=== PATIENT | female | born 1990 | race Caucasian/White ===

== ENCOUNTER 2017-06-19 23:47 | Inpatient (IN) | payer OTHER ==
[~2017-06-19] VITALS: Ht 165.1 cm; Wt 68.0 kg
[2017-06-19 23:53] VITALS: BP 120/70; PULSE 109; O2SAT 97
[2017-06-19] MEDS ORDERED: SODIUM CHLOR 0.9% 1000 ML INJ 1,000 ML IV SCH (23:56)
[2017-06-19 23:59] VITALS: O2SAT 98
[2017-06-20] VITALS (22 sets, daily range): BP systolic 118–145; BP diastolic 51–85; PULSE 71–132; RESP 14–21; TEMP 97.7–100.3; O2SAT 96–100
[2017-06-20] MEDS ORDERED: SODIUM CHLORIDE 0.9% FLUSH 10 ML FLUSH IVF PRN
[2017-06-20] MEDS ORDERED: MORPHINE SULFATE 4 MG/ML INJ IV PUSH ONE
[2017-06-20 00:23] LABS: AUTOMATED NEUTROPHIL # 6.9 TH/MM3 (1.8-7.7); BASOPHIL # 0.1 TH/MM3 (0-0.2); BASOPHIL % 0.4 % (0.0-2.0); EOSINOPHIL # 0.3 TH/MM3 (0-0.4); EOSINOPHIL % 2.6 % (0.0-4.0); HEMATOCRIT 39.3 % (35.0-46.0); HEMO FLAGS DIFF FINAL; LYMPH % 37.3 % (9.0-44.0); LYMPHOCYTE # 4.9 TH/MM3 (1.0-4.8); MEAN CELL VOLUME 92.6 FL (80.0-100.0); MEAN CORPUSCULAR HEMOGLOBIN 31.4 PG (27.0-34.0); MEAN CORPUSCULAR HGB CONC 33.9 % (32.0-36.0); MONO % 6.9 % (0.0-8.0); NEUT % 52.8 % (16.0-70.0); PLATELET COUNT 273 TH/MM3 (150-450); RED BLOOD COUNT 4.24 MIL/MM3 (4.00-5.30); RED CELL DISTRIBUTION WIDTH 13.7 % (11.6-17.2); WHITE BLOOD COUNT 13.1 TH/MM3 (4.0-11.0)
[2017-06-20 00:35] LABS: APTT (PATIENT) 25.7 SEC (24.3-30.1); PROTHROMBIN TIME - PATIENT 10.6 SEC (9.8-11.6)
[2017-06-20] MEDS ORDERED: ONDANSETRON HCL 4 MG/2 ML VIAL ONE (00:50)
[2017-06-20 00:51] LABS: BICARBONATE 24.6 MEQ/L (21.0-32.0)
[2017-06-20 00:54] LABS: POTASSIUM 2.9 MEQ/L (3.5-5.1)
[2017-06-20] MEDS ORDERED: ETOMIDATE 20 MG/10 ML VIAL ONE (00:55)
[2017-06-20] MEDS ORDERED: SUCCINYLCHOLINE CHLORIDE 200 MG/10 ML VIAL ONE (00:55)
[2017-06-20] MEDS ORDERED: PROPOFOL 1000 MG/100 ML INJ 100 ML ONE (00:58)
[2017-06-20] MEDS: PROPOFOL 1000 MG/100 ML INJ 100 ML IV PRN ×5 (01:10→01:30)
[2017-06-20] MEDS ORDERED: ETOMIDATE 20 MG/10 ML VIAL IV PUSH ONE (01:15)
[2017-06-20] MEDS ORDERED: MIDAZOLAM 100 MG/100 ML INJ 100 ML IV PRN (01:15)
[2017-06-20] MEDS ORDERED: fentaNYL DRIP 250 ML IV PRN (01:15)
[2017-06-20] MEDS ORDERED: SUCCINYLCHOLINE CHLORIDE 100 MG/5 ML SYRINGE IV PUSH ONE (01:15)
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
[2017-06-20] MEDS ORDERED: MIDAZOLAM HCL 5 MG/ML VIAL (1 ML) ONE (02:01)
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
[2017-06-20] MEDS ORDERED: IOHEXOL 350 MG/ML 10 ML VIAL (for RAD DIAG) IVCONTRAST ONE (02:34)
[2017-06-20 02:51] LABS: BACTERIA, URINE RARE /hpf; BLOOD, URINE MOD (NEG); COMMENT (UR) CULT NOT INDICATED; CULTURE IF INDICATED CULT NOT INDICATED; GLUCOSE,URINE NEG (NEG); KETONE, URINE NEG (NEG); MUCUS URINE FEW /lpf (OCC); NITRITE,URINE NEG (NEG); SQUAMOUS EPITHELIAL CELL URINE 1 /hpf (0-5); URINE COLOR LIGHT-YELLOW (YELLW/STRAW)
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
[2017-06-20] MEDS ORDERED: RESP: ALBUTEROL 2.5 MG/IPRATROPIUM 0.5 MG NEB (PRN) INH (03:15)
[2017-06-20] MEDS ORDERED: MISCELLANEOUS NURSING INFORMATION XX SCH (03:15)
[2017-06-20] MEDS ORDERED: SODIUM CHLORIDE 0.9% FLUSH 10 ML FLUSH IV FLUSH PRN (03:15)
[2017-06-20] MEDS ORDERED: ACETAMINOPHEN 325 MG TAB PO PRN (03:15)
[2017-06-20] MEDS ORDERED: ROCURONIUM INJ 100 MG/10 ML VIAL IV ONE (03:15)
[2017-06-20] MEDS ORDERED: LACTULOSE SYRUP 20 GM/30 ML CUP PO PRN (03:15)
[2017-06-20] MEDS ORDERED: MIDAZOLAM HCL 2 MG/2 ML VIAL IV PUSH PRN (03:15)
[2017-06-20] MEDS ORDERED: SENNOSIDES 8.6 MG TAB PO PRN (03:15)
[2017-06-20] MEDS ORDERED: CHLORHEXIDINE GLUCONATE 2 % 1 PACK (2 CLOTHS) TOP PRN (03:15)
[2017-06-20] MEDS ORDERED: BISACODYL 10 MG SUPP RECTAL PRN (03:15)
[2017-06-20] MEDS ORDERED: MAGNESIUM HYDROXIDE SUSP 30 ML CUP PO PRN (03:15)
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
[2017-06-20] MEDS: RESP: ALBUTEROL 2.5 MG/IPRATROPIUM 0.5 MG NEB (SCH) INH ×4 (03:30→19:44)
[2017-06-20 03:56] LABS: BLOOD GAS BASE EXCESS -5.1 mmol/L (-2-2); BLOOD GAS CARBOXYHEMOGLOBIN 1.5 % (0-4); BLOOD GAS HCO3 19 mmol/L (22-26); BLOOD GAS O2 HGB SATURATION 97 % (90-100); BLOOD GAS OXYGEN CONTENT 17.9 Vol % (12.0-20.0); BLOOD GAS PCO2 30 mmHg (38-42); BLOOD GAS PO2 289 mmHG (61-120); BLOOD GAS TOTAL HGB 12.6 G/DL (12.0-16.0); CRITICAL VALUE NO; FIO2 60 %; OXYGEN DEVICE VENTILATOR
[2017-06-20 03:57] LABS: DRAW SITE RT FOOT; NUMBER OF ARTERIAL PUNCTURES 1; STAT YES
[2017-06-20] MEDS: CHLORHEXIDINE GLUCONATE 2 % 1 PACK (2 CLOTHS) TOP SCH (04:00)
[2017-06-20] MEDS: SODIUM CHLOR 0.9% 1000 ML INJ 1,000 ML IV SCH ×2 (04:04→15:01)
[2017-06-20] MEDS: POTASSIUM CHLOR 10 MEQ PREMIX 100 ML IV SCH ×2 (04:05→06:42)
[2017-06-20] MEDS ORDERED: MAGNESIUM OXIDE 400 MG TAB PO PRN (04:45)
[2017-06-20] MEDS ORDERED: POTASSIUM CHLORIDE 25 MEQ EFFERVESCENT TAB PO PRN (04:45)
[2017-06-20] MEDS ORDERED: POTASSIUM PHOSPHATE MONOBASIC 500 MG TAB PO/TUBE PRN (04:45)
[2017-06-20] MEDS ORDERED: POTASSIUM CHLOR 20 MEQ PREMIX 100 ML IV PRN ×2 (04:45)
[2017-06-20] MEDS ORDERED: POTASSIUM CHLOR 40 MEQ PREMIX 100 ML IV PRN ×2 (04:45)
[2017-06-20] MEDS ORDERED: MAGNESIUM SULFATE INJ 2 GM in SODIUM CHLORIDE 0.9% INJ 96 ML IV PRN (04:45)
[2017-06-20] MEDS ORDERED: POTASSIUM PHOSPHATE MONOBASIC 500 MG TAB PO PRN (04:45)
[2017-06-20] MEDS ORDERED: MAGNESIUM SULFATE INJ 4 GM in SODIUM CHLORIDE 0.9% INJ 92 ML IV PRN (04:45)
[2017-06-20] MEDS ORDERED: SODIUM PHOSPHATE INJ 30 MMOL in SODIUM CHLOR 0.9% 250 ML INJ 240 ML IV PRN (04:45)
[2017-06-20] MEDS ORDERED: POTASSIUM PHOSPHATE INJ 30 MMOL in SODIUM CHLOR 0.9% 250 ML INJ 250 ML IV PRN (04:45)
[2017-06-20] MEDS: MORPHINE SULFATE 4 MG/ML INJ IV PUSH PRN ×2 (06:25→08:35)
[2017-06-20] MEDS ORDERED: ACETAMINOPHEN 1000 MG/100 ML 100 ML IV PRN (07:15)
[2017-06-20] MEDS ORDERED: PROMETHAZINE HCL 25 MG SUPP RECTAL PRN (07:15)
[2017-06-20] MEDS ORDERED: CHLORHEXIDINE 0.12% (ORAL KIT) 15 ML CUP MT SCH (08:00)
[2017-06-20] MEDS: ONDANSETRON HCL 4 MG/2 ML VIAL IV PUSH PRN ×2 (08:30→14:30)
[2017-06-20] MEDS: ARTIFICIAL TEARS OPTH SOLN 15 ML BTL EACH EYE SCH ×3 (09:00→18:00)
[2017-06-20] MEDS: SODIUM CHLORIDE 0.9% FLUSH 10 ML FLUSH IV FLUSH SCH ×2 (09:00→20:36)
[2017-06-20] MEDS: HEPARIN SODIUM - SQ 10,000 UNITS/ML VIAL SQ SCH ×2 (09:00→20:37)
[2017-06-20] MEDS ORDERED: FAMOTIDINE 20 MG/2 ML VIAL IV PUSH SCH (09:00)
[2017-06-20] MEDS: DOCUSATE SODIUM 50 MG/SENNA 8.6 MG TAB PO SCH ×2 (09:00→20:36)
--- NOTE | 2017-06-20 09:53 | HHI.NSPN ---
Labs, Micro, & Vital Signs Results Date Time Temp Pulse Resp B/P (MAP) Pulse Ox O2 Delivery O2 Flow Rate FiO2 06/20/17 07:20 100 Nasal Cannula 2.00 06/20/17 06:30 24 06/20/17 06:00 132 06/20/17 05:12 06/20/17 05:00 97.7 115 14 139/75 (96) 100 06/20/17 04:50 99 35 06/20/17 04:30 100 100 06/20/17 04:09 130 16 144/68 (93) 100 Ventilator 06/20/17 03:35 100 35 06/20/17 03:25 110 16 144/83 (103) 100 Ventilator 06/20/17 03:00 113 16 142/82 (102) 100 Ventilator 06/20/17 02:53 100 16 142/68 (92) 100 Ventilator 06/20/17 02:34 100 16 145/85 (105) 100 Ventilator 06/20/17 02:00 100 16 141/80 (100) 99 Ventilator 06/20/17 01:57 100 100 06/20/17 01:05 100 Nasal Cannula 4 06/20/17 01:05 100 60 06/19/17 23:59 98 Room Air 06/19/17 23:59 98 Room Air 06/19/17 23:53 109 120/70 (87) 97 Constitutional Vital Signs Date Time Temp Pulse Resp B/P (MAP) Pulse Ox O2 Delivery O2 Flow Rate FiO2 06/20/17 07:20 100 Nasal Cannula 2.00 06/20/17 06:30 24 06/20/17 06:00 132 06/20/17 05:12 06/20/17 05:00 97.7 115 14 139/75 (96) 100 06/20/17 04:50 99 35 06/20/17 04:30 100 100 06/20/17 04:09 130 16 144/68 (93) 100 Ventilator 06/20/17 03:35 100 35 06/20/17 03:25 110 16 144/83 (103) 100 Ventilator 06/20/17 03:00 113 16 142/82 (102) 100 Ventilator 06/20/17 02:53 100 16 142/68 (92) 100 Ventilator 06/20/17 02:34 100 16 145/85 (105) 100 Ventilator 06/20/17 02:00 100 16 141/80 (100) 99 Ventilator 06/20/17 01:57 100 100 06/20/17 01:05 100 Nasal Cannula 4 06/20/17 01:05 100 60 06/19/17 23:59 98 Room Air 06/19/17 23:59 98 Room Air 06/19/17 23:53 109 120/70 (87) 97 Attending Statement Michael Estevez MD Jun 20, 2017 09:53
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
--- NOTE | 2017-06-20 15:46 | RADRPT ---
EXAM DATE/TIME: 06/20/2017 14:50 [facility] COMPARISON: No previous studies available for comparison. INDICATIONS : Temporal bone fracture on right RADIATION DOSE: 63.26 CTDIvol (mGy) MEDICAL HISTORY : None SURGICAL HISTORY : None. ENCOUNTER: Initial ACUITY: 1 day PAIN SCORE: 5/10 LOCATION: Right temporal bone TECHNIQUE: Volumetric scanning of the temporal bone was performed. Using automated exposure control and adjustm ent of the mA and/or kV according to patient size, radiation dose was kept as low as reasonably achie vable to obtain optimal diagnostic quality images. DICOM format image data is available electronicall y for review and comparison. FINDINGS: Examination of the left temporal bone demonstrates no findings of cholesteatoma. The ossicles are unr emarkable. No inner ear abnormality is identified. The vestibular aqueduct is normal in size. The ex ternal auditory canal is widely patent. The tegmen tympani is intact.The seventh nerve demonstrates a normal course through the middle ear. There is no widening on the internal auditory canal. Termination right temporal bone demonstrates horizontal fracture of the right temporal bone without e vidence of pneumocephalus. Gas is identified in the soft tissues of the skull base along the course o f the internal auditory canal. The condylar head is intact. No inner ear abnormalities identified. Th ere is no dislocation of the ossicles. CONCLUSION: 1. Horizontal fracture of the right temporal bone without pneumocephalus or ossicular dislocation Salvador Edouard MD on June 20, 2017 at 15:36 Board Certified Radiologist. This report was verified electronically.
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
[2017-06-20] MEDS: LACTULOSE SYRUP 20 GM/30 ML CUP PO SCH (20:00)
[2017-06-20] MEDS: ACETAMINOPHEN 325 MG TAB PO SCH (20:35)
[2017-06-20] MEDS: MAGNESIUM HYDROXIDE SUSP 30 ML CUP PO SCH (20:36)
[2017-06-21 00:10] VITALS: BP 95/59; PULSE 78; RESP 17; TEMP 99; O2SAT 95
[2017-06-21] MEDS: ACETAMINOPHEN 325 MG TAB PO SCH ×2 (02:00→09:41)
[2017-06-21] MEDS: SODIUM CHLOR 0.9% 1000 ML INJ 1,000 ML IV SCH (02:56)
[2017-06-21] MEDS: ONDANSETRON HCL 4 MG/2 ML VIAL IV PUSH PRN (03:35)
[2017-06-21] MEDS: MORPHINE SULFATE 4 MG/ML INJ IV PUSH PRN (03:36)
[2017-06-21] MEDS: CHLORHEXIDINE GLUCONATE 2 % 1 PACK (2 CLOTHS) TOP SCH (04:00)
[2017-06-21] MEDS: RESP: ALBUTEROL 2.5 MG/IPRATROPIUM 0.5 MG NEB (SCH) INH ×2 (04:25→10:07)
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
[2017-06-21 08:00] VITALS: BP 127/56; PULSE 101; RESP 18; TEMP 98.2; O2SAT 97
[2017-06-21] MEDS: MAGNESIUM HYDROXIDE SUSP 30 ML CUP PO SCH (08:00)
[2017-06-21 08:46] LABS: ALKALINE PHOSPHATASE 67 U/L (45-117); ALT (GPT) 17 U/L (10-53); ANION GAP 11 MEQ/L (5-15); AST (GOT) 21 U/L (15-37); BICARBONATE 23.2 MEQ/L (21.0-32.0); BLOOD UREA NITROGEN 9 MG/DL (7-18); CHLORIDE 105 MEQ/L (98-107); GLOMERULAR FILTRATION RATE 127 ML/MIN (>89); MAGNESIUM 2.1 MG/DL (1.5-2.5); SODIUM (NA) 139 MEQ/L (136-145); TOTAL BILIRUBIN ADULT 0.8 MG/DL (0.2-1.0)
[2017-06-21] MEDS: ARTIFICIAL TEARS OPTH SOLN 15 ML BTL EACH EYE SCH (09:00)
[2017-06-21 09:05] LABS: AUTOMATED NEUTROPHIL # 9.2 TH/MM3 (1.8-7.7); BASOPHIL % 0.2 % (0.0-2.0); EOSINOPHIL # 0.1 TH/MM3 (0-0.4); EOSINOPHIL % 0.6 % (0.0-4.0); HEMATOCRIT 37.6 % (35.0-46.0); HEMO FLAGS DIFF FINAL; LYMPH % 13.7 % (9.0-44.0); LYMPHOCYTE # 1.6 TH/MM3 (1.0-4.8); MEAN CELL VOLUME 93.8 FL (80.0-100.0); MEAN CORPUSCULAR HEMOGLOBIN 31.3 PG (27.0-34.0); MEAN CORPUSCULAR HGB CONC 33.3 % (32.0-36.0); MONO % 6.9 % (0.0-8.0); NEUT % 78.6 % (16.0-70.0); PLATELET COUNT 198 TH/MM3 (150-450); RED BLOOD COUNT 4.01 MIL/MM3 (4.00-5.30); WHITE BLOOD COUNT 11.8 TH/MM3 (4.0-11.0)
[2017-06-21 09:34] LABS: POTASSIUM 2.8 MEQ/L (3.5-5.1)
[2017-06-21] MEDS: DOCUSATE SODIUM 50 MG/SENNA 8.6 MG TAB PO SCH (09:41)
[2017-06-21] MEDS: HEPARIN SODIUM - SQ 10,000 UNITS/ML VIAL SQ SCH (09:41)
[2017-06-21] MEDS: LACTULOSE SYRUP 20 GM/30 ML CUP PO SCH (09:42)
[2017-06-21] MEDS: SODIUM CHLORIDE 0.9% FLUSH 10 ML FLUSH IV FLUSH SCH (09:43)
[2017-06-21] MEDS ORDERED: VIST50CA PO (09:54)
[2017-06-21] MEDS ORDERED: ARIP2 PO (09:54)
[2017-06-21] MEDS ORDERED: LAMI200T PO (09:54)
[2017-06-21] MEDS ORDERED: BREX1TAB3 PO (09:54)
[2017-06-21] MEDS ORDERED: DOXE25CA2 PO (09:54)
[2017-06-21] MEDS ORDERED: VENTAER INH (09:54)
[2017-06-21 10:09] VITALS: O2SAT 100
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
[2017-06-21 11:43] VITALS: BP 126/76; PULSE 96; RESP 18; TEMP 97.8; O2SAT 96
[2017-06-21] MEDS ORDERED: WALKER WHEELS/F1 MIS (12:08)
[2017-06-21] MEDS ORDERED: NORC5TAB PO (12:10)
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
== END 2017-06-21 16:41 | disposition home or self-care (01) | DRG 85 ==
LOC: NEPC 23:47 → NEDA 06-20 02:45 → N03A 06-20 04:53 → N06A 06-20 20:16
PROVIDERS: ADMIT Surgery; ATTEND Surgery
PROC: 0BH17EZ Insertion of Endotracheal Airway into Trachea, Via Natural or Artificial Opening (ICD-10-PCS; principal; 2017-06-20)
PROC: 5A1935Z Respiratory Ventilation, Less than 24 Consecutive Hours (ICD-10-PCS; 2017-06-20)
DX: S02.19XA Other fracture of base of skull, initial encounter for closed fracture (principal); J96.90 Respiratory failure, unspecified, unspecified whether with hypoxia or hypercapnia; E84.9 Cystic fibrosis, unspecified; S32.591A Other specified fracture of right pubis, initial encounter for closed fracture; S32.601A Unspecified fracture of right ischium, initial encounter for closed fracture; S06.0X1A Concussion with loss of consciousness of 30 minutes or less, initial encounter; J45.909 Unspecified asthma, uncomplicated; E11.9 Type 2 diabetes mellitus without complications; S70.01XA Contusion of right hip, initial encounter; R40.2411 Glasgow coma scale score 13-15, in the field [EMT or ambulance]; H73.899 Other specified disorders of tympanic membrane, unspecified ear; F10.129 Alcohol abuse with intoxication, unspecified; F31.9 Bipolar disorder, unspecified; F90.9 Attention-deficit hyperactivity disorder, unspecified type; F12.90 Cannabis use, unspecified, uncomplicated; F17.210 Nicotine dependence, cigarettes, uncomplicated; V03.10XA Pedestrian on foot injured in collision with car, pick-up truck or van in traffic accident, initial encounter; Y90.6 Blood alcohol level of 120-199 mg/100 ml; Y92.414 Local residential or business street as the place of occurrence of the external cause
CPT/HCPCS: 31500; 36600; 51702; 70450; 70480; 71010; 71260; 72125; 73552; 74177; 80048; 80053; 80307; 81001; 82805; 83735; 84100; 84132; 85025; 85610; 85730; 86850; 86900; 86901; 87641; 94002; 94640; 94664; 96361; 96374; 96375; 99292; J0330; J1644; J2250; J2270; J2405; J3480; J7030; L0172; Q9967

== ENCOUNTER 2017-06-25 20:32 | Emergency (ER) | payer SELFPAY ==
[~2017-06-25] VITALS: Ht 160 cm; Wt 62.0 kg
[~2017-06-25 20:32] MED LIST: ARIP2 PO; BREX1TAB3 PO; DOXE25CA2 PO; LAMI200T PO; NORC5TAB PO; VENTAER INH; VIST50CA PO; WALKER WHEELS/F1 MIS
[2017-06-25 20:33] VITALS: BP 144/67; PULSE 110; RESP 18; TEMP 98.7; O2SAT 99
[2017-06-25] MEDS ORDERED: ONDANSETRON ODT 4 MG TAB PO ONE (20:45)
[2017-06-25] MEDS ORDERED: HYDR-3111 PO (22:33)
[2017-06-25] MEDS ORDERED: LAMI200T PO (22:33)
[2017-06-25] MEDS ORDERED: ARIP2 PO (22:33)
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
[2017-06-25] MEDS ORDERED: PROCHLORPERAZINE INJ 10 MG/2 ML VIAL IV PUSH ONE (23:00)
[2017-06-25] MEDS ORDERED: SODIUM CHLORIDE 0.9% FLUSH 10 ML FLUSH IVF PRN (23:00)
[2017-06-25] MEDS ORDERED: diphenhydrAMINE HCL 50 MG/ML VIAL IV PUSH ONE (23:00)
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
[2017-06-26] MEDS ORDERED: PROCHLORPERAZINE MALEATE 10 MG TAB PO ONE (00:30)
[2017-06-26] MEDS ORDERED: diphenhydrAMINE HCL 25 MG CAP PO ONE (00:30)
== END 2017-06-26 01:08 | disposition home or self-care (01) ==
LOC: NEPC 20:32
DX: G44.319 Acute post-traumatic headache, not intractable (principal); F31.9 Bipolar disorder, unspecified; F90.9 Attention-deficit hyperactivity disorder, unspecified type; F17.200 Nicotine dependence, unspecified, uncomplicated
CPT/HCPCS: 70450; 96374; 96375